=== PATIENT | male | born 1955 | race Caucasian/White ===

== ENCOUNTER 2018-08-28 12:57 | Outpatient (REF) | payer MEDICARE, SELFPAY ==
[2018-08-28 19:31] LABS: HCT 34.1 % (40.0-50.0); HGB 11.6 g/dL (13.5-17.5); Mean Corpuscular Hemoglobin 29.9 pg (27.0-33.0); Mean Corpuscular Volume 87.9 fL (80-95); Platelet Count 126 x1000/uL (130-400); RBC 3.88 m/cumm (4.50-6.00); RBC Distribution Width 14.2 % (11.8-14.1); White Blood Cell Count 5.35 k/cumm (4.4-10.8)
[2018-08-28 19:55] LABS: ALT 10 U/L (12-78); AST 23 U/L (15-37); Albumin 2.1 g/dL (3.4-5.0); Alkaline Phosphatase 127 U/L (46-116); Anion Gap 5.9 mmol/L (3-11); BUN 32 mg/dL (7-18); Bilirubin, Total 0.6 mg/dL (0.2-1.0); CO2 29.1 mmol/L (21.0-32.0); CREATININE 1.86 mg/dL (0.70-1.30); Calcium 8.2 mg/dL (8.5-10.1); Chloride 107 mmol/L (98-107); Estimated GFR 36.88 (mL/min/1.73m2); Glucose 160 mg/dL (70-100); Potassium 4.5 mmol/L (3.5-5.1); Sodium 142 mmol/L (136-145); Total Protein 5.7 g/dL (6.4-8.2)
== END 2018-08-28 13:17 ==
LOC: NCHCN 12:57
PROVIDERS: PCP Internal Medicine; Visit Provider Internal Medicine
DX: E11.9 Type 2 diabetes mellitus without complications (principal); I10 Essential (primary) hypertension; K74.60 Unspecified cirrhosis of liver
CPT/HCPCS: 80053; 85027

== ENCOUNTER 2018-11-30 12:01 | Outpatient (REF) | payer MEDICARE, SELFPAY ==
[2018-11-30 19:34] LABS: COMMENT (LAB VIEW ONLY) 85.74 mg/dL
== END 2018-11-30 12:21 ==
LOC: NCHCN 12:01
PROVIDERS: PCP Internal Medicine; Visit Provider Internal Medicine
DX: K92.0 Hematemesis (principal); E11.9 Type 2 diabetes mellitus without complications; F17.200 Nicotine dependence, unspecified, uncomplicated; K70.30 Alcoholic cirrhosis of liver without ascites
CPT/HCPCS: 82043; 82570

== ENCOUNTER 2020-08-29 17:17 | Outpatient (REF) | payer OTHER, SELFPAY ==
[2020-08-29 21:10] LABS: HCT 31.3 % (40.0-50.0); HGB 9.5 g/dL (13.5-17.5); MCH 25.1 pg (27.0-33.0); MCHC 30.4 % (32.0-36.0); MCV 82.6 fL (80-95); MPV 10.8 fL (8.0-11.0); Platelet Count 213 10^3/uL (130-400); RBC 3.79 10^6/uL (4.36-5.78); RDW 16.9 % (11.8-14.1); RDW-SD 49.6 fL; WBC 8.72 10^3/uL (4.4-10.8)
[2020-08-29 21:23] LABS: INR 1.9 (0.9-1.1); Prothrombin Time 18.7 sec (9.3-11.0)
[2020-08-29 21:31] LABS: ALT 8 U/L (16-63); AST 12 U/L (15-37); Albumin 3.5 g/dL (3.4-5.0); Alkaline Phosphatase 152 U/L (46-116); Anion Gap 9.8 mmol/L (3-11); BUN 37 mg/dL (7-18); Bilirubin, Total 0.4 mg/dL (0.2-1.0); CO2 32.2 mmol/L (21.0-32.0); Calcium 9.4 mg/dL (8.5-10.1); Chloride 97 mmol/L (98-107); Estimated GFR 9.67 (mL/min/1.73m2); Glucose 135 mg/dL (74-106); Sodium 139 mmol/L (136-145); Total Protein 7.6 g/dL (6.4-8.2)
[2020-08-29 21:39] LABS: CREATININE 5.9 mg/dL (0.70-1.30)
== END 2020-08-29 17:18 | disposition home or self-care (01) ==
LOC: NCHCN 17:17
PROVIDERS: PCP Internal Medicine; Visit Provider Nurse Practitioner Family
DX: E11.9 Type 2 diabetes mellitus without complications (principal); K70.30 Alcoholic cirrhosis of liver without ascites
CPT/HCPCS: 80053; 85027; 83036; 85610

== ENCOUNTER 2020-09-01 12:52 | Outpatient (REF) | payer SELFPAY ==
[2020-09-01 13:15] LABS: Potassium 4.3 mmol/L (3.5-5.1)
== END 2020-09-01 12:53 | disposition home or self-care (01) ==
LOC: LBO 12:52
PROVIDERS: PCP Internal Medicine; Visit Provider Internal Medicine Nephrology
DX: E87.5 Hyperkalemia (principal)
CPT/HCPCS: 36415; 84132

== ENCOUNTER 2020-09-05 13:43 | Outpatient (REF) | payer OTHER, SELFPAY ==
[2020-09-13 11:20] LABS: Amphetamines Negative ng/mL (Cutoff: 20); Barbiturates Negative ng/mL (Cutoff: 50); Buprenorphine Negative ng/mL (Cutoff: 1); Cocaine Negative ng/mL (Cutoff: 20); Methadone Negative ng/mL (Cutoff: 25); Methamphetamine Negative ng/mL (Cutoff: 20)
[2020-09-13 11:21] LABS: Phencyclidine Negative ng/mL (Cutoff: 10)
[2020-09-13 11:22] LABS: Benzodiazepines Positive ng/mL (Cutoff: 50)
[2020-09-13 11:23] LABS: Opiates Positive ng/mL (Cutoff: 20)
[2020-09-13 11:40] LABS: Diazepam <5 ng/mL
[2020-09-13 11:41] LABS: Alpha-hyrdroxyalprazolam <5 ng/mL; Alprazolam <5 ng/mL; Chloridiazepoxide <20 ng/mL; Clonazepam <5 ng/mL; Lorazepam <20 ng/mL; Temazepam <20 ng/mL
[2020-09-13 11:42] LABS: Midazolam <20 ng/mL
[2020-09-13 11:46] LABS: 11-Nor-9-carboxy-THC,S/P <5 ng/mL; Codeine <2 ng/mL; Hydromorphone <2 ng/mL; Morphine <2 ng/mL
[2020-09-13 11:49] LABS: Hydrocodone <2 ng/mL
== END 2020-09-05 13:44 | disposition home or self-care (01) ==
LOC: NCHCN 13:43
PROVIDERS: PCP Internal Medicine; Visit Provider Nurse Practitioner Family
DX: M54.5 Low back pain (principal); G89.29 Other chronic pain
CPT/HCPCS: 30365; 80346; 80349; 80361; 80307; G0480

== ENCOUNTER 2021-04-04 13:50 | Outpatient (REF) | payer MEDICARE, SELFPAY ==
[2021-04-11 15:03] LABS: Amphetamines Negative ng/mL (Cutoff: 20); Barbiturates Negative ng/mL (Cutoff: 50); Benzodiazepines Negative ng/mL (Cutoff: 50); Buprenorphine Negative ng/mL (Cutoff: 1); Cocaine Negative ng/mL (Cutoff: 20); Methadone Negative ng/mL (Cutoff: 25); Methamphetamine Negative ng/mL (Cutoff: 20)
[2021-04-11 15:04] LABS: Opiates Positive ng/mL (Cutoff: 20); Phencyclidine Negative ng/mL (Cutoff: 10)
[2021-04-11 15:20] LABS: Codeine <2 ng/mL; Hydrocodone <2 ng/mL; Morphine <2 ng/mL
[2021-04-11 15:21] LABS: Hydromorphone 7 ng/mL
== END 2021-04-04 13:51 | disposition home or self-care (01) ==
LOC: NCHCN 13:50
PROVIDERS: PCP Internal Medicine; Visit Provider Nurse Practitioner Family
DX: M54.59 Other low back pain (principal)
CPT/HCPCS: 30365; 80361; 80307; G0480

== ENCOUNTER 2021-05-11 12:20 | Emergency (ER) | payer MEDICARE, SELFPAY ==
[2021-05-11] VITALS (8 sets, daily range): BP systolic 116–138; BP diastolic 62–100; PULSE 104–165; RESP 10–18; TEMP 36.5; O2SAT 99–100
--- NOTE | 2021-05-11 12:15 | RT.EKG_ITS ---
APPROVED REPORT Exam: Resting ECG Reason for Exam: [facility] Patient Location: E HR:107 bpm ECG Measurements Heart Rate 107 AXIS MT 194 P 44 QRSd 109 QRS -57 QT 356 T 46 QTc 476 Conclusion Sinus tachycardia. Left anterior fascicular block...axis(240,-40), init forces inf
--- NOTE | 2021-05-11 12:29 | ED.GENADUL_ITS ---
Discharge Plan Disposition Patient Disposition: HOME Condition: Improving Discharge Details Clinical Impression: Accidental overdose Primary Care Provider: Chepe Fragoso ED Provider: Monica Escudero Home Meds and New Rx's Prescriptions: Continued omeprazole 40 MG capsule,delayed release(DR/EC) 40 mg PO DAILY 0RF albuterol sulfate [Ventolin HFA] 60 PUFF HFA aerosol inhaler 2 puff Inhalation PRN [id number] Label Comments: just restarted this am metoprolol tartrate 25 MG tablet 25 mg PO BID 0RF ferrous sulfate 324 MG tablet,delayed release (DR/EC) 324 mg PO DAILY 0RF lactulose 20 GM/30 ML solution 30 ml PO QID 0RF Label Comments: pt [facility] gabapentin [Neurontin] 300 MG capsule 300 mg PO TID 0RF Advair HFA 60 PUFF HFA aerosol inhaler 2 puff Inhalation BID 0RF multivitamin [Daily Multi-Vitamin] 1 EACH tablet 1 tab PO DAILY AM 0RF acetaminophen [Mapap Extra Strength] 500 MG tablet 500 mg PO Q6H Qty: 90 0RF Rx Instructions: give scheduled please cannot have narcotics for now spironolactone 50 MG tablet 50 mg PO BID DIURETIC Qty: 180 0RF thiamine mononitrate (vit B1) [Vitamin B-1 (mononitrate)] 100 MG tablet 100 mg PO QAM Qty: 90 0RF magnesium oxide 400 MG tablet 400 mg PO BID Qty: 180 0RF docusate sodium [Colace] 100 MG capsule 100 mg PO TID PRN PRNQty: 90 0RF folic acid 1 MG tablet 1 mg PO DAILY Qty: 90 0RF amlodipine 10 mg Tablet 10 mg DAILY 0RF pantoprazole 40 mg Tablet,Delayed Release (Dr/Ec) 40 mg PO BID 0RF No Action carbidopa-levodopa [Sinemet CR] 1 EACH tablet extended release 1 ea PO DAILY 0RF diphenhydramine HCl 25 MG capsule 25 mg PO .Q 8 HOURS PRN 0RF ascorbic acid (vitamin C) [Vitamin C] 500 MG capsule, extended release 500 mg PO DAILY 0RF amoxicillin-pot clavulanate [Augmentin] 1 EACH tablet 1 ea PO BID 0RF ascorbic acid (vitamin C) [Vitamin C] 500 MG tablet 500 mg PO DAILY Qty: 90 0RF ferrous sulfate 325 MG tablet 325 mg PO DAILY Qty: 180 0RF hydromorphone 2 mg Tablet 2 mg PO TID 0RF finasteride 5 mg Tablet 5 mg DAILY 0RF sevelamer carbonate 800 mg Tablet 800 mg PO TID 0RF Discharge Instructions Instructions: Narcotic Safety (ED), Prescription Opioid Overdose (ED) Additional Instructions: Take the Narcan if increased sedation and educate your family members on how to use it. I believe you have been overly sedated due to the Dilaudid use. Use Narcan for any trouble breathing, decreased responsiveness or turning blue or less than 10 breaths a minute. I highly suggest holding the next dose of Dilaudid until you are more awake. Follow up with primary care provider in 3-5 days. Return to ED sooner if any worsening or concerns. Increase oral fluids. Referrals: Janae Holly [ [facility] STAFF PHYSICIAN] - 5 days Medical Decision Making <Monica Rubioton - Last Filed: 05/11/21 17:36> 66-year-old male in the ER via EMS after having a dialysis treatment this morning. Patient presented to the dialysis clinic with altered mental status however they did go ahead with the dialysis session. Patient fell asleep during dialysis and when he was awoken he became and altered. On arrival he is altered, responds to strong verbal stimuli and reports that he took a pill. He does have a history of oversedation and narcotic, chronic liver disease with hepatitis, alcoholic cirrhosis and hepatitis C, COPD, obesity and obstructive sleep apnea. Extensive work-up ordered serial troponin, ammonia level, VBG and head CT urinalysis with urine drug screen. I highly suspect medication overdose as patient takes 2 mg hydromorphone 3 times daily and does have a history of oversedation in the past. Differential includes but not limited to overdose, CVA, artery disease, OH, Electrolyte imbalance, Sepsis. EKG was reviewed by Dr. Prince ER attending, please see his official report review, old EKG available for review. 1255: Patient was given 0.2 mg of Narcan IV which improved his mental status, patient now is trying to stand up and get out of bed. Patient was placed in a recliner chair at the bedside. Will speak with patient's family to see about getting patient home safely. We will continue to observe. 1304: Spoke with patient Sister Carin who informed me that Claire's daughter is a medication to dialysis care of him. She is in [place] right now but is willing to come here if Needed. Will contact daughter Deborah Mayo. 1305: Spoke with his daughter Deborah Mayo who states he was confused this am when she arrived to take him to dialysis. Both his daughter and sister are aware that he sometimes becomes over sedated with the narcotics. She is here in parking lot and will be taking him home when he is ready to be safely discharged. Phone number is [phone]. 1315: Patient O2 sat 99 percent on RA, due to immediate response to the Narcan I did cancel the head CT. I do suspect this is narcotic overdose which he has had in the past. Patient is in a recliner chair in line of sight of nurses station. CBC shows mild leukocytosis of 11.24 hemoglobin 0.0 hematocrit 32 platelets 126, VBG shows a pH of 7.43 bicarb 31 7 base excess, sodium was 135, potassium 3.5, chloride 94 BUN is 20 creatinine 3.6 GFR 17, glucose 132 bilirubin is 1.3 liver enzymes are slightly elevated. Initial troponin within normal limits. Lipase is 235, ethyl alcohol less than 3.0. [facility] website consulted it is noted that patient receives 84 tablets of 2 mg Dilaudid monthly last filled May 07. He is scheduled to take Dilaudid 2 mg TID. patient states he only took 1 tablet of Dilaudid this am, he is still somewhat sleepy here in department, I did speak agail with Deborah Mayo who states he has a girlfriend that he lives with and would not be alone. She is ok taking him home as long as he can get into the car by himself. 1356: Additional 0.2mg Narcan ordered IVP patient is sleeping sitting up in chair. Xray unable to obtain CXR due to report of patient not compliant to sit back. 1431: Patient is refusing Chest XR, He has gotten second dose of Narcan and will be released into his families care. Patient was assisted to the car in a wheelchair. Discussed home care with [facility] family who verbalized understanding. I did recommend that he not take any more narcotics for the rest of the day and stay with him at all times. This text was generated using [employer] system, please disregard any oddities of phrase or misspellings. <Sheldon Prince MD - Last Filed: 05/11/21 12:56> Medical Records Medical records reviewed: Yes I reviewed the patient's medical records. Medical records narrative: Patient seen, examined and discussed at the bedside with Ms. Escudero. I agree with her assessment and plan including effective trial of Narcan for reversal of sedation secondary to narcotic medication. HPI <Monica Escudeor - Last Filed: 05/11/21 17:36> General Mode of arrival: EMS . Date/Time Provider Initiated Documentation: 05/11/21 12:21 . Limitations to Documentation: altered mental status . Information obtained by: EMS, RN notes reviewed and old records reviewed . HPI Narrative: 66-year-old male in the ER via EMS after having a dialysis treatment this morning. Patient presented to the dialysis clinic with altered mental status however they did go ahead with the dialysis session. Patient fell asleep during dialysis and when he was awoken he became and altered. On arrival he is altered, responds to strong verbal stimuli and reports that he took a pill. He does have a history of oversedation and narcotic, chronic liver disease with hepatitis, alcoholic cirrhosis and hepatitis C, COPD, obesity and obstructive sleep apnea. Related Data Home Medications Medication Instructions Recorded Confirmed albuterol sulfate 90 mcg/actuation 2 puff INHALATION PRN PRN 01/13/13 05/11/21 aerosol inhaler (Ventolin HFA) amoxicillin 875 mg-potassium 1 ea PO BID 01/13/13 01/18/13 clavulanate 125 mg tablet (Augmentin) ascorbic acid (vitamin C) 500 mg 500 mg PO DAILY 01/13/13 01/18/13 capsule,extended release (Vitamin C) carbidopa ER 25 mg-levodopa 100 mg 1 ea PO DAILY 01/13/13 05/11/21 tablet,extended release (Sinemet CR) diphenhydramine HCl 25 mg capsule 25 mg PO .Q 8 HOURS PRN 01/13/13 05/11/21 ferrous sulfate 324 mg (65 mg 324 mg PO DAILY 01/13/13 01/18/13 iron) tablet,delayed release metoprolol tartrate 25 mg tablet 25 mg PO BID 11/06/13 11/11/13 omeprazole 40 mg capsule,delayed 40 mg PO DAILY 01/13/13 01/18/13 release fluticasone propionate 115 2 puff INHALATION BID 01/18/13 05/11/21 mcg-salmeterol 21 mcg/actuation HFA inhaler (Advair HFA) gabapentin 300 mg capsule 300 mg PO TID 01/18/13 05/11/21 (Neurontin) lactulose 20 gram/30 mL oral 30 ml PO QID 01/18/13 01/18/13 solution multivitamin (Daily Multi-Vitamin) 1 tab PO DAILY AM 01/18/13 01/18/13 acetaminophen 500 mg tablet (Mapap 500 mg PO Q6H #90 tab 01/19/13 05/11/21 Extra Strength) ascorbic acid (vitamin C) 500 mg 500 mg PO DAILY #90 tab 01/19/13 05/11/21 tablet (Vitamin C) docusate sodium 100 mg capsule 100 mg PO TID PRN PRN #90 cap 01/19/13 05/11/21 (Colace) ferrous sulfate 325 mg (65 mg 325 mg PO DAILY #180 tab 01/19/13 iron) tablet folic acid 1 mg tablet 1 mg PO DAILY #90 tab 01/19/13 magnesium oxide 400 mg (241.3 mg 400 mg PO BID #180 tab 01/19/13 05/11/21 magnesium) tablet spironolactone 50 mg tablet 50 mg PO BID DIURETIC #180 tab 01/19/13 thiamine mononitrate (vit B1) 100 100 mg PO QAM #90 tab 01/19/13 05/11/21 mg tablet (Vitamin B-1 (mononitrate)) amlodipine 10 mg tablet 10 mg DAILY 05/11/21 05/11/21 finasteride 5 mg tablet 5 mg DAILY 05/11/21 05/11/21 hydromorphone 2 mg tablet 2 mg PO TID 05/11/21 05/11/21 pantoprazole 40 mg tablet,delayed 40 mg PO BID 05/11/21 05/11/21 release sevelamer carbonate 800 mg tablet 800 mg PO TID 05/11/21 05/11/21 Previous Rx's Medication Instructions Recorded acetaminophen 500 mg tablet (Mapap 500 mg PO Q6H #90 tab 01/19/13 Extra Strength) ascorbic acid (vitamin C) 500 mg 500 mg PO DAILY #90 tab 01/19/13 tablet (Vitamin C) docusate sodium 100 mg capsule 100 mg PO TID PRN PRN #90 cap 01/19/13 (Colace) ferrous sulfate 325 mg (65 mg 325 mg PO DAILY #180 tab 01/19/13 iron) tablet folic acid 1 mg tablet 1 mg PO DAILY #90 tab 01/19/13 magnesium oxide 400 mg (241.3 mg 400 mg PO BID #180 tab 01/19/13 magnesium) tablet spironolactone 50 mg tablet 50 mg PO BID DIURETIC #180 tab 01/19/13 thiamine mononitrate (vit B1) 100 100 mg PO QAM #90 tab 01/19/13 mg tablet (Vitamin B-1 (mononitrate)) Allergies Allergy/AdvReac Type Severity Reaction Status Date / Time celecoxib [From Celebrex] Allergy Unknown Unverified 01/18/13 11:18 codeine Allergy Unknown Unverified 01/18/13 11:18 bee pollen AdvReac Unknown Unverified 01/18/13 11:18 grass pollen-perennial rye, AdvReac Unverified 01/18/13 11:18 standar Review of Systems <Monica Escudero - Last Filed: 05/11/21 17:36> Unobtainable due to mental status [facility] <Monica Escudero - Last Filed: 05/11/21 17:36> All Active Problems (Updated 05/11/21 @ 14:01 by Monica Escudero) Decreased level of consciousness (Acute 01/18/13) Sedated due to medication (Acute 01/18/13) Oversedated on narcotics Encephalopathy (Acute 01/18/13) With elevated ammonia Cirrhosis of liver due to hepatitis C (Acute 01/18/13) Not having had any biopsy or treatment yet per patient's sister. Osteomyelitis of cervical spine (Acute 01/18/13) C-7-T-1 with spinal cord compression. S/P surgery for same CAD (coronary artery disease) (Chronic) Chronic alcohol abuse (Chronic) Usually 12 to 24 beers per day. Stopped when he was admitted to [facility] in October 2012. Hypertension (Chronic) Diabetes mellitus type II, controlled (Chronic) Obesity (Chronic) Chronic low back pain (Chronic) Secondary to degenerative joint disease. GERD (gastroesophageal reflux disease) (Chronic) Sleep apnea (Chronic) He does not usually wear his device. Dental caries (Chronic) Severe. Thought to be the source of his osteomyelitis. Urinary retention (Acute) Catheter dependent. Accidental overdose (Acute) Social History Smoking/Tobacco Use Status: Unknown Smoking risk assessment performed?: Yes Alcohol Intake: never Substance use type: does not use Do you feel safe at home: Yes Do you feel safe in your relationship?: Yes Exam <Monica Escudero - Last Filed: 05/11/21 17:36> Narrative Exam Narrative: Constitutional: Obtunded, responds to. Strong verbal stimuli, does not answer questions appropriately, slurred speech, older than stated age. Normal body habitus. Head: Normocephalic, no trauma. Eyes: Pupils PERRL, sluggish, Red reflex noted, EOM's intact. Eyelids symmetrical without lesions, discharge, or swelling. ENT: Bilateral TM's WNL, External ear normal to inspection, no mastoid TTP, swelling, or erythema, Nasal turbinates WNL, no nasal discharge. Normal dentition, Posterior pharynx WNL, no exudate. Chest: Tachycardic at 109normal S1, S2, distal pulses intact. Resp: Mild expiratory scattered wheezes bilaterally Abdomen: Soft, non-distended, Normoactive bowel sounds all 4 quads. Musculoskeletal: Unable to assess gait Skin: No suspicious rashes or lesions. Capillary refill less than 2 sec. Neurologic: No focal neuro deficits noted, patient confused, slurred speech letter respond. Not following commands Hematologic/Lymphatic: No ecchymosis, no lymphadenopathy.
[2021-05-11 12:42] LABS: Abs Immature Grans 0.04 10^3/uL (0.0-0.06); Absolute Lymphocyte Count 1.19 10^3/uL (1.2-3.4); Absolute Neutrophil Count 8.96 10^3/uL (1.2-6.7); BE (Venous) 7 mmol/L (-2-3); Basophils % 0.4; Eosinophils % 1.8; HCO3 (Venous) 31 mmol/L (23-28); HCT 36.2 % (40.0-50.0); Immature Grans % 0.4; Lymphocytes % 10.6; MCH 29.1 pg (27.0-33.0); MCHC 33.1 % (32.0-36.0); MCV 87.9 fL (80-95); MPV 10.1 fL (8.0-11.0); Monocytes % 7.1; Neutrophils % 79.7; Nucleated RBC 0 %; O2 Sat (Venous) 54 %; Platelet Count 126 10^3/uL (130-400); RBC 4.12 10^6/uL (4.36-5.78); RDW-SD 51.4 fL; TCO2 (Venous) 29 mmol/L (24-29); WBC 11.24 10^3/uL (4.4-10.8); pCO2 (Venous) 48 mmHg (41-51); pH (Venous) 7.43 (7.31-7.41); pO2 (Venous) 30 mmHg
[2021-05-11] MEDS: Naloxone 0.4 MG/ML VIAL 0.2 MG IVP ×2 (12:45→14:20)
[2021-05-11 12:46] LABS: Absolute Basophil Count 0.04 10^3/uL (0.0-0.2)
--- NOTE | 2021-05-11 12:46 | NUR.NOTE ---
Nursing Note: pT LYING ON STRETCHER, RESPONSIVE TO VERBAL STIMULI, MEDICATED IV NARCAN WITH IMMEDIATE RESPONSE. PT AWAKE AND TRYING TO GET OOB, CONT TO MONITOR.
--- NOTE | 2021-05-11 12:55 | NUR.NOTE ---
Nursing Note:PT ASSISTED TO RECLINING CHAIR, PULLED MONITORS OFF, ATTEMPT TO RE-ORIENT PT W/O SUCCESS. REAPPLIED BP CUFF AND O2 SAT, 1:1 TO REMIND PT TO STAY IN CHAIR HE IS VERY UNSTEADY ON HIS FEET, CONT. TO MONITOR.
[2021-05-11 12:56] LABS: Ammonia 57 umol/L (11-32)
[2021-05-11 13:03] LABS: AST 15 U/L (15-37); Albumin 3.7 g/dL (3.4-5.0); Alkaline Phosphatase 127 U/L (46-116); Anion Gap 10.5 mmol/L (3-11); BUN 20 mg/dL (7-18); Bilirubin, Total 1.3 mg/dL (0.2-1.0); CO2 30.5 mmol/L (21.0-32.0); Calcium 9.3 mg/dL (8.5-10.1); Chloride 94 mmol/L (98-107); Estimated GFR 17.05 (mL/min/1.73m2); Glucose 132 mg/dL (74-106); Lipase 235 U/L (73-393); Magnesium 2.1 mg/dL (1.8-2.4); Potassium 3.5 mmol/L (3.5-5.1); Sodium 135 mmol/L (136-145); Total Protein 9.4 g/dL (6.4-8.2); Troponin I < 50 ng/L (<or=60)
[2021-05-11 13:04] LABS: ETHANOL BLOOD < 3.0 mg/dL (<10)
[2021-05-11 13:05] LABS: ALT < 6 U/L (16-63)
[2021-05-11 13:06] LABS: CREATININE 3.6 mg/dL (0.70-1.30)
--- NOTE | 2021-05-14 14:18 | NUR.NOTE ---
Nursing Note: Accessed patient chart for Dr. Ravi Mckeon to see who was on the patient's contacts list and who was on his HIPPA form. Delmy Colon
== END 2021-05-11 15:13 | disposition home or self-care (01) ==
PROVIDERS: Emergency Provider Registered Nurse Emergency; PCP Internal Medicine
DX: T65.891A Toxic effect of other specified substances, accidental (unintentional), initial encounter (principal); R41.82 Altered mental status, unspecified
CPT/HCPCS: 36415; 80053; 82805; 83690; 93005; 96374; 99284; 80320; 82140; 83735; 84484; 85025; 93010; 99283; J2310

== ENCOUNTER 2021-10-11 15:14 | Outpatient (REF) | payer MEDICARE, SELFPAY ==
[2021-10-11 16:40] LABS: Calculated LDL 91 mg/dL (<100); Cholesterol 145 mg/dL (<200); HDL Cholesterol 42 mg/dL (40-60); Triglyceride 61 mg/dL (<150)
== END 2021-10-11 15:15 | disposition home or self-care (01) ==
LOC: NCHCN 15:14
PROVIDERS: PCP Internal Medicine; Visit Provider Nurse Practitioner Family
DX: E11.9 Type 2 diabetes mellitus without complications (principal); I10 Essential (primary) hypertension; Z13.6 Encounter for screening for cardiovascular disorders
CPT/HCPCS: 80061